=== PATIENT | male | born 1985 | race Caucasian/White ===

== ENCOUNTER 2019-01-29 19:20 | Emergency (ER) | payer MEDICAID ==
[~2019-01-29] VITALS: Ht 177.8 cm; Wt 80.0 kg
[2019-01-29] MEDS ORDERED: ASPIRIN 81 MG TABLET CHEW PO ONE (20:00)
[2019-01-29 20:17] LABS: BASOPHILS # (AUTO) 0.13 x10^3/uL (0-0.1); BASOPHILS % (AUTO) 2 % (0-1); EOSINOPHILS # (AUTO) 0.15 x10^3/uL (0-0.4); EOSINOPHILS % (AUTO) 2 % (1-7); LYMPHOCYTES # (AUTO) 3.22 x10^3/uL (1-3.4); LYMPHOCYTES % (AUTO) 45 % (22-44); MD NO; MEAN CORPUSCULAR HEMOGLOBIN 31.4 pg (27.5-34.5); MEAN CORPUSCULAR HGB CONC 34.7 g/dL (33.2-36.2); MEAN CORPUSCULAR VOLUME 90.5 fL (81-97); MEAN PLATELET VOLUME 8.5 fL (7.4-10.4); MONOCYTES # (AUTO) 0.66 x10^3/uL (0.2-0.8); MONOCYTES % (AUTO) 9 % (2-9); NEUTROPHILS # (AUTO) 3.06 x10^3/uL (1.8-6.8); NEUTROPHILS % (AUTO) 42 % (42-75); PLATELET COUNT 262 x10^3/uL (130-400); RED BLOOD COUNT 4.87 x10^6/uL (4.38-5.82); RED CELL DISTRIBUTION WIDTH 12.9 % (9.4-14.8)
[2019-01-29 20:25] LABS: ALBUMIN 4.4 g/dL (3.4-5.0); ANION GAP 5 mmol/L (5-15); CALCIUM 9.9 mg/dL (8.5-10.1); CHLORIDE 108 mmol/L (98-107)
[2019-01-29 20:30] LABS: CREATININE 1.06 mg/dL (0.7-1.3); TROPONIN I < 0.015 ng/mL (0.000-0.045)
--- NOTE | 2019-01-29 21:06 | NUR ---
PT PRESENTS ED C/O SHARP CP L SIDE OF CHEST "RADIATING TO BACK AND DOWN MY LEFT ARM"x2.5 HOURS. STATES DIZZY. DENIES LOC. 157/107 R ARM BP AND 143/96 L ARM BP. HX OF ANXIETY. PER TRIAGE NOTE
[2019-01-29] MEDS ORDERED: ASPIRIN 81 MG TABLET CHEW ONE (22:05)
[2019-01-29 23:01] VITALS: BP 119/74
== END 2019-01-29 23:03 | disposition home or self-care (01) ==
LOC: ED 22:15
DX: R07.89 Other chest pain (principal); R42 Dizziness and giddiness; R11.0 Nausea; F41.1 Generalized anxiety disorder
CPT/HCPCS: 36415; 71046; 80048; 82040; 83880; 84484; 85025; 93005; 99284